=== PATIENT | female | born 1980 | race Caucasian/White ===

== ENCOUNTER 2024-07-28 09:27 | Outpatient (AMB) | payer BC, SELFPAY ==
--- NOTE | 2024-07-28 09:44 | MHC.PC.OV ---
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 She has been taking Lisinopril 20 mg daily for hypertension and reports that she has been stable on this medication with no side effects such as dizziness or cough. Her blood pressure readings remain well-controlled, with a recent measurement of 108/78 mmHg. The patient denies any recent emergency room visits or hospitalizations related to her condition and states that her health has been stable. She confirms adherence to the current treatment plan and expresses no current complaints affecting her overall well-being. Patient is celebrating Thanksgiving with her family at her mother's house. The patient's father at age 81 this past September. Patient was informed and verbally consented to the use of an ambient scribe for clinic note documentation during this visit. ROS: - Cardiovascular: Denies chest pain or palpitations. - Respiratory: Denies cough or shortness of breath. - Neurologic: Denies dizziness or syncopal episodes. - Extremities: Denies edema or unusual swelling. Physical exam: Constitutional: Alert, in no distress. Neck: Supple, Full range of motion. No lymphadenopathy. Respiratory: Clear to auscultation. Cardiovascular: S1 S2 regular. No murmurs. Extremities: Warm and well perfused. No clubbing, cyanosis or edema. Psychiatric: Normal mood and affect [facility] Medical History (Updated 03/07/24 @ 12:43 by LOUANN Hilario) Seasonal allergic rhinitis due to pollen History of hemolysis, elevated liver enzymes, and low platelet (HELLP) syndrome Essential hypertension Surgical History (Updated 07/28/24 @ 09:54 by Hanna Foster CMA) H/O section Family History (Updated 07/28/24 @ 09:56 by Hanna Foster CMA) Mother Breast cancer Kidney stone Father Heart disease HTN (hypertension) Social History Housing: House Alcohol intake: current Patient Tobacco Use Status: Never used Tobacco e-Cigarette/Vaping Use: Never Used service: No Current occupational status: employed 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 1. Little interest or pleasure in doing things: not at all 2. Feeling down, depressed, or hopeless: not at all 3. Trouble falling or staying asleep, or sleeping too much: not at all 4. Feeling tired or having little energy: not at all 5. Poor appetite or overeating: not at all 6. Feeling bad about yourself - or that you are a failure or have let yourself or your family down: not at all 7. Trouble concentrating on things, such as reading the newspaper or watching television: not at all 8. Moving or speaking so slowly that other people could have noticed. Or the opposite - being so fidgety or restless that you have been moving around a lot more than usual: not at all 9. Thoughts that you would be better off or of hurting yourself in some way: not at all Total score: 0 Depression Screening Interpretation: Negative Depression Screening Done: Yes 38079 - PHQ-9 Billing: Yes Source: Developed by Drs. Jose Maria Samuels, Ave [address], Jonel Street and colleagues, with an educational jerome from [employer]. Thrive Questionnaire Date Thrive assessed: 07/28/24 I am a: Patient What is your living situation today?: I have a steady place to live Within the past 12 months, did the food you bought not last and you didn't have the money to get more?: Never true Within the past 12 months, did you worry whether your food would run out before you got money to buy more?: Never true Do you have trouble paying for medicines?: No Do you have trouble getting transportation to medical appointments?: No Do you have trouble paying your heating and electricity bill?: No Do you have trouble taking care of your child, family member or friend?: No Do you have trouble with day-to-day activities such as bathing, preparing meals, shopping, managing finances, etc.?: No Are you currently unemployed and looking for a job?: No Are you interested in more education?: No Please select the resources that you would like help with: None Currently or been in a relationship where the following occur: No concerns reported THRIVE Score: 0 AUDIT C Alcohol Use Questionnaire (AUDIT-C) 1. How often do you have a drink containing alcohol?: Monthly or less 2. How many drinks containing alcohol do you have on a typical day when you are drinking?: 1 or 2 3. How often do you have six or more drinks on one occasion?: Never Total Score: 1 DOMONIQUE-7 AMB Questionnaire DOMONIQUE-7 Date DOMONIQUE - 7 assessed: 07/28/24 Feeling nervous, anxious, or on edge: 0 = Not at all Not being able to stop or control worryin = Not at all Worrying too much about different things: 0 = Not at all Trouble relaxin = Not at all Being so restless that it is hard to sit still: 0 = Not at all Becoming easily annoyed or irritable: 0 = Not at all Feeling afraid as if something awful might happen: 0 = Not at all Total DOMONIQUE-7 score (0-4 normal; 5-9 mild; 10-14 moderate; 15-21 severe): 0 Source: Developed by Drs. Jose Maria Samuels, [address], Jonel [address] and colleagues, with an educational jerome from [employer]. DOMONIQUE-7 Assessment Billing DOMONIQUE-7 Assessment Tool: DOMONIQUE-7 Assessment 62315 Physical exam (Primary Care) Vital Signs: Last Vital Signs Pulse 106 H 07/28/24 09:53 Resp 12 07/28/24 09:53 BP 108/78 07/28/24 09:53 Pulse Ox 100 07/28/24 09:53 Oxygen Delivery Method Room Air 07/28/24 09:53 BMI result Body Mass Index 24.0 Tobacco/Smoking Status: Tobacco use Status Tobacco use date assessed 07/28/24 07/28/24 09:54 Patient Tobacco Use Status Never used Tobacco 07/28/24 09:56 e-Cigarette/Vaping Use Never Used 07/28/24 09:56 PHQ-9: PHQ-9 Score PHQ-9: Total score 0 07/28/24 09:54 Depression Screening Interpretation: Negative Thrive Assessment: Date of Thrive Assessment Date Thrive assessed 07/28/24 07/28/24 09:54 Currently or been in a relationship where the following occur: No concerns reported Coding Level of Care Code Est Pt Level 3 (31219) Complex EM visit Add On G2211 Diagnoses Essential hypertension I10 Additional Codes DOMONIQUE-7 Assessment Billing - DOMONIQUE-7 Assessment Tool: DOMONIQUE-7 Assessment 93299 ([id number]) PHQ-9 - 45351 - PHQ-9 Billing: Yes ([id number]) Assessment & Plan Assessment & Plan (1) Essential hypertension: Code(s): I10 - Essential (primary) hypertension Category: Medical Plan Essential Hypertension: The patient's hypertension is well-controlled on Lisinopril 20 mg daily without adverse effects. I will continue the current treatment regimen and prescribe a year's supply to be filled at the specified pharmacy. The patient will undergo routine fasting laboratory tests prior to the next follow-up appointment scheduled in six months. The importance of continued adherence to medication and monitoring for any side effects was emphasized. Follow up in 6 months for a physical exam. Medications: New lisinopril 20 mg PO DAILY 90 tabs 3RF
[2024-07-28 09:53] VITALS: BP 108/78; PULSE 106; RESP 12; O2SAT 100; BMI 24.0
== END 2024-07-28 10:06 | disposition home or self-care (01) ==
PROVIDERS: PCP Physician Assistant Medical; Visit Provider Physician Assistant Medical
DX: I10 Essential (primary) hypertension (principal)

== ENCOUNTER → 2024-07-28 09:27 | Outpatient (BNVA) | payer BC, SELFPAY | PROVIDERS: PCP Physician Assistant Medical; Visit Provider Physician Assistant Medical | DX: I10 Essential (primary) hypertension (principal); Z79.899 Other long term (current) drug therapy | CPT/HCPCS: 96127 ==

== ENCOUNTER 2025-01-14 07:56 | Outpatient (REF) | payer BC, SELFPAY ==
[2025-01-14 11:05] LABS: Hematocrit 40.1 % (37.0-47.0); Hemoglobin 13.3 g/dl (12.0-16.0); Mean Corpuscular HGB Conc 33.2 g/dl (31.0-35.0); Mean Corpuscular Hemoglobin 31.1 pg (27.0-33.0); Mean Corpuscular Volume 93.7 fL (80.0-98.0); Mean Platelet Volume 9.3 fL (9.4-12.3); Platelet Count 413 X10*3/uL (160-400); Red Blood Count 4.28 X10*6/uL (4.20-5.50); Red Cell Distribution Width 12.5 % (11.0-16.0); White Blood Count 8.4 X10*3/uL (4.8-10.8)
[2025-01-14 11:21] LABS: Alanine Aminotransferase 18 U/L (0-31); Albumin Level 4.1 g/dL (3.5-5.0); Alkaline Phosphatase 49 U/L (39-117); Anion Gap 14 (12-20); Aspartate Amino Transferase 23 U/L (5-31); Bilirubin Total 0.6 mg/dL (0.0-1.0); Blood Urea Nitrogen 13 mg/dL (9-16); Carbon Dioxide 23 mmol/L (22-29); Chloride 105 mmol/L (96-108); Cholesterol 167 mg/dL (<200); Estimated Glomerular Filt Rate > 60; Glucose Random 99 mg/dL (60-115); HDL Cholesterol 52 mg/dL (>40); LDL Cholesterol Calculated 102 mg/dL (<100); Potassium 4.1 mmol/L (3.3-5.1); Sodium 138 mmol/L (135-145); Total Protein 7.3 g/dL (6.5-8.0); Triglycerides 69 mg/dL (<150)
== END 2025-01-14 07:57 | disposition home or self-care (01) ==
LOC: HO.WFDLDS 07:56
PROVIDERS: Visit Provider Physician Assistant Medical
DX: I10 Essential (primary) hypertension (principal); E78.5 Hyperlipidemia, unspecified; Z13.6 Encounter for screening for cardiovascular disorders
CPT/HCPCS: 36415; 80053; 80061; 85027

== ENCOUNTER 2025-02-05 08:25 | Outpatient (AMB) | payer BC, SELFPAY ==
--- NOTE | 2025-02-05 08:30 | A.OFFPC_ITS ---
Vital Signs 02/05/25 08:51 Height 5 ft 5 in Weight 147 lb 2 oz BMI 24.5 BP 116/82 Blood Pressure Location Rt brachial Position Sitting Pulse 90 Pulse Source Pulse Oximeter Temp 98.8 F Temp Source Temporal Artery Scan Pulse Oximetry (%) 98 Oxygen Delivery Method Room Air Intake Visit Reasons: Annual PE - see comments Intake Note: Jennifer presents in the office today for her annual physical. Allergies Seasonal Allergies Allergy (Verified 02/05/25 08:33) Congestion Tobacco use date assessed: 02/05/25 Dental Screening Dental Screen Date: 02/05/25 Did you have a dental visit in the last 12 months?: Yes Did you have a dental problem in the last 6 months where you did not have access to dental care?: No Was dental information given to patient?: Patient has dentist HPI HPI Comments History of Present Illness Details This is a 44-year-old female with a past medical history of seasonal allergies and hypertension presenting for a physical exam. Hypertension-taking lisinopril 20 mg daily. Her blood pressure is 116/68. Nonsmoker. Walks 3-4 days per week. She follows a healthy diet. She weight lifts. Seasonal allergies-taking Flonase Sensimist and Claritin. She has also been using a Neti pot, but she feels that she has a sinus infection that developed over the past few weeks. She initially had cold symptoms which resolved for the most part, and she has persistent sinus pressure particularly over the left maxillary area and frontal area. She has had some yellowish nasal discharge and copious postnasal drip. No fevers or chills. Negative Cologuard 01/09/2025. Mammogram 10/07/2024. Up-to-date with OBGYN, eye and dental exams. We reviewed her blood work which showed mildly elevated platelets at 413,000, but again she has been sick for the past few weeks. Receives annual influenza vaccine. Tdap 02/28/2022. ROS: Constitutional: No unexplained weight loss, fever, chills, fatigue or night sweats. Eyes: No vision changes, blurry vision, double vision, eye pain, eye redness, eye discharge. ENT: No hearing loss, no ear pain, see HPI Respiratory: No shortness of breath, cough or sputum production. Cardiovascular: No chest pain, chest pressure or chest discomfort. No palpitations or pedal edema. Gastrointestinal: No anorexia, nausea, vomiting or diarrhea. No abdominal pain or blood in stool. Genitourinary: No dysuria, hematuria, urinary frequency. Neurologic: No headache, dizziness, syncope, unilateral weakness, ataxia, numbness or tingling in the extremities. Musculoskeletal: No muscle pain, back pain, joint pain or swelling. Hematologic/Lymphatics: No bleeding or bruising. No painful lymph nodes. Skin: No rash changing or new moles or freckles. Endocrine: No cold or heat intolerance. No polyuria or polydipsia. Psychiatric: No depression or anxiety. No SI/HI. Physical exam: Constitutional: Alert, in no distress. Head: Normocephalic. Eyes: Pupils are equal, round and reactive to light. Extraocular muscles intact. Ear, Nose and Throat: Canals clear. TMs normal. Nasal mucosa mildly erythematous. Maxillary sinus tenderness left greater than right and frontal tenderness. No nasal discharge. No oral lesions. Neck: Supple, Full range of motion. No lymphadenopathy. No palpable thyroid masses. Respiratory: Clear to auscultation. Cardiovascular: S1 S2 regular. No murmurs. No carotid bruits. Gastrointestinal: Abdomen soft, non-tender, non-distended. Normal bowel sounds. No palpable masses. Neurologic: No focal neurological deficits. Symmetric patellar reflexes. Moves all extremities spontaneously. Sensation intact bilaterally. Skin: No rashes Musculoskeletal: No gross deformities. Normal range of motion. Extremities: Warm and well perfused. No clubbing, cyanosis or edema. Intact peripheral pulses bilaterally. Psychiatric: Normal mood and affect [facility] Medical History (Updated 02/05/25 @ 09:04 by LOUANN Hilario) Acute sinusitis Routine physical examination Elevated platelet count Seasonal allergic rhinitis due to pollen History of hemolysis, elevated liver enzymes, and low platelet (HELLP) syndrome Essential hypertension Surgical History (Updated 07/28/24 @ 09:54 by Hanna Foster CMA) H/O section Family History Mother Breast cancer Kidney stone Father Heart disease HTN (hypertension) Social History (Updated 02/05/25 @ 08:34 by Roslyn Sanchez MA) Housing: House Alcohol intake: current Patient Tobacco Use Status: Never used Tobacco e-Cigarette/Vaping Use: Never Used Second Hand Smoke Exposure: No service: No Current occupational status: employed 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 1. Little interest or pleasure in doing things: not at all 2. Feeling down, depressed, or hopeless: not at all 3. Trouble falling or staying asleep, or sleeping too much: not at all 4. Feeling tired or having little energy: not at all 5. Poor appetite or overeating: not at all 6. Feeling bad about yourself - or that you are a failure or have let yourself or your family down: not at all 7. Trouble concentrating on things, such as reading the newspaper or watching television: not at all 8. Moving or speaking so slowly that other people could have noticed. Or the opposite - being so fidgety or restless that you have been moving around a lot more than usual: not at all 9. Thoughts that you would be better off or of hurting yourself in some way: not at all Total score: 0 Depression Screening Interpretation: Negative Depression Screening Done: Yes 44852 - PHQ-9 Billing: Yes Source: Developed by Drs. Jose Maria Samuels, [address], Jon[address] and colleagues, with an educational jerome from [employer]. Thrive Questionnaire Date Thrive assessed: 02/05/25 I am a: Patient What is your living situation today?: I have a steady place to live Within the past 12 months, did the food you bought not last and you didn't have the money to get more?: Never true Within the past 12 months, did you worry whether your food would run out before you got money to buy more?: Never true Do you have trouble paying for medicines?: No Do you have trouble getting transportation to medical appointments?: No Do you have trouble paying your heating and electricity bill?: No Do you have trouble taking care of your child, family member or friend?: No Do you have trouble with day-to-day activities such as bathing, preparing meals, shopping, managing finances, etc.?: No Are you currently unemployed and looking for a job?: No Are you interested in more education?: No Please select the resources that you would like help with: None Currently or been in a relationship where the following occur: No concerns reported THRIVE Score: 0 AUDIT C Alcohol Use Questionnaire (AUDIT-C) 1. How often do you have a drink containing alcohol?: Monthly or less 2. How many drinks containing alcohol do you have on a typical day when you are drinking?: 1 or 2 3. How often do you have six or more drinks on one occasion?: Never Total Score: 1 Score Reviewed/Action Taken: No DOMONIQUE-7 AMB Questionnaire DOMONIQUE-7 Date DOMONIQUE - 7 assessed: 02/05/25 Feeling nervous, anxious, or on edge: 0 = Not at all Not being able to stop or control worryin = Not at all Worrying too much about different things: 0 = Not at all Trouble relaxin = Not at all Being so restless that it is hard to sit still: 0 = Not at all Becoming easily annoyed or irritable: 0 = Not at all Feeling afraid as if something awful might happen: 0 = Not at all Total DOMONIQUE-7 score (0-4 normal; 5-9 mild; 10-14 moderate; 15-21 severe): 0 Source: Developed by Drs. Jose Maria Samuels, [address], [address] and colleagues, with an educational jerome from [employer]. DOMONIQUE-7 Assessment Billing DOMONIQUE-7 Assessment Tool: DOMONIQUE-7 Assessment 82025 Physical exam (Primary Care) Tobacco/Smoking Status: Tobacco use Status Tobacco use date assessed 02/05/25 02/05/25 08:46 Patient Tobacco Use Status Never used Tobacco 02/05/25 08:34 e-Cigarette/Vaping Use Never Used 02/05/25 08:34 PHQ-9: PHQ-9 Score PHQ-9: Total score 0 02/05/25 08:46 Depression Screening Interpretation: Negative Thrive Assessment: Date of Thrive Assessment Date Thrive assessed 02/05/25 02/05/25 08:32 Currently or been in a relationship where the following occur: No concerns reported Coding Level of Care Code Est Pt Prev Care 40-64y(99491) Diagnoses Elevated platelet count R79.89 Essential hypertension I10 Acute non-recurrent maxillary sinusitis J01.00 Sinusitis location: maxillary Recurrence: non-recurrent Additional Codes DOMONIQUE-7 Assessment Billing - DOMONIQUE-7 Assessment Tool: DOMONIQUE-7 Assessment 57003 ([id number]) PHQ-9 - 90424 - PHQ-9 Billing: Yes ([id number]) Assessment & Plan Assessment & Plan (1) Elevated platelet count: Code(s): R79.89 - Other specified abnormal findings of blood chemistry Category: Medical (2) Essential hypertension: Code(s): I10 - Essential (primary) hypertension Category: Medical (3) Acute sinusitis: Code(s): J01.90 - Acute sinusitis, unspecified Category: Medical Qualifiers: Sinusitis location: maxillary Recurrence: non-recurrent Qualified Code(s): J01.00 - Acute maxillary sinusitis, unspecified Plan Patient is seen today for a routine physical. As part of this visit we reviewed the following issues, which are considered and essential part of preventative health in this age group: - Breast Cancer screening - Annual Lean Facilitator exam - Screening for colon cancer - Blood pressure screening - Cholesterol screening - Osteoporosis prevention including calcium/vitamin D intake, weight bearing exercise & smoking cessation - Nutritional and exercise counseling - Counseling of injury prevention including fire prevention, smoke alarms and seat belt usage - Screening for depression - Education about skin cancer - Recommendations about immunizations - Recommendation of an eye exam - Screening for substance abuse Continue Claritin and Flonase Sensimist for seasonal allergy symptoms. Treat sinusitis with Augmentin 1 pill twice daily times 10 days. Side effects and administration reviewed. Encouraged taking this with food and having yogurt and probiotics. Call if symptoms do not resolve. Hypertension is well-controlled. Continue current regimen. Follow up in 6 months for hypertension. Medications: New amoxicillin-pot clavulanate 875-125 mg 1 tab PO BID 20 tabs 0RF Refilled lisinopril 20 mg PO DAILY 90 tabs 3RF
[2025-02-05 08:51] VITALS: BP 116/82; PULSE 90; TEMP 37.1; O2SAT 98; BMI 24.5
== END 2025-02-05 09:03 | disposition home or self-care (01) ==
LOC: HO.HMCFM 08:26
PROVIDERS: PCP Physician Assistant Medical; Visit Provider Physician Assistant Medical
DX: Z00.00 Encounter for general adult medical examination without abnormal findings (principal); R79.89 Other specified abnormal findings of blood chemistry; I10 Essential (primary) hypertension; J01.00 Acute maxillary sinusitis, unspecified

== ENCOUNTER → 2025-02-05 08:25 | Outpatient (BNVA) | payer BC, SELFPAY | PROVIDERS: PCP Physician Assistant Medical; Visit Provider Physician Assistant Medical | DX: Z00.01 Encounter for general adult medical examination with abnormal findings (principal); Z13.31 Encounter for screening for depression; R79.89 Other specified abnormal findings of blood chemistry; I10 Essential (primary) hypertension; J01.00 Acute maxillary sinusitis, unspecified | CPT/HCPCS: 96127 ==

== ENCOUNTER 2025-08-13 10:26 | Outpatient (AMB) | payer BC, SELFPAY ==
--- NOTE | 2025-08-13 10:22 | MHC.PC.OV ---
Intake Visit Reasons: telehealth HTN review Intake Note: Jennifer presents for a telehealth visit for HTN. 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 Is last menstrual period known: Yes Last menstrual period: 08/11/25 Post menopausal: No Patient : No Allergies Seasonal Allergies Allergy (Verified 08/13/25 10:23) Congestion Tobacco use date assessed: 08/13/25 Dental Screening Dental Screen Date: 08/13/25 Did you have a dental visit in the last 12 months?: Yes Did you have a dental problem in the last 6 months where you did not have access to dental care?: No Was dental information given to patient?: Patient has dentist HPI HPI Comments History of Present Illness Details This is a 45-year-old female with a past medical history of seasonal allergies and hypertension presenting for follow up. Hypertension-taking lisinopril 20 mg daily. She provided the following readings from home: 06/17/ 109/78, 07/21 123/79 and 08/11 110/73. Nonsmoker. Walks 3-4 days per week. She follows a healthy diet. She weight lifts. Negative Cologuard 01/09/2025. Mammogram 10/07/2024. Up-to-date with OBGYN, eye and dental exams. We reviewed her blood work which showed mildly elevated platelets at 413,000, but she has been sick around that time. Received influenza vaccine. Tdap 02/28/2022. ROS: Constitutional: No fevers or chills Cardiovascular: No chest pain Neurologic: No dizziness PFSH Medical History (Updated 08/13/25 @ 10:57 by LOUANN Hilario) Screening for cardiovascular condition Acute sinusitis Routine physical examination Elevated platelet count Seasonal allergic rhinitis due to pollen History of hemolysis, elevated liver enzymes, and low platelet (HELLP) syndrome Essential hypertension Surgical History (Updated 07/28/24 @ 09:54 by Hanna Foster CMA) H/O section Family History Mother Breast cancer Kidney stone Father Heart disease HTN (hypertension) Social History (Updated 08/13/25 @ 10:24 by Roslyn Sanchez CMA) Housing: House Alcohol intake: current Patient Tobacco Use Status: Never used Tobacco e-Cigarette/Vaping Use: Never Used Second Hand Smoke Exposure: No Use of substances other than those prescribed or required for medical reasons: No Patient : No service: No Current occupational status: employed 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 Current occupational exposures/hazards: No Cognitive needs: No Hearing needs: No Vision needs: No Female Reproductive History Menstrual Date of last menstrual period: 08/11/25 Questionnaire Thrive Questionnaire Date Thrive assessed: 02/02/25 I am a: Patient What is your living situation today?: I have a steady place to live Within the past 12 months, did the food you bought not last and you didn't have the money to get more?: Never true Within the past 12 months, did you worry whether your food would run out before you got money to buy more?: Never true Do you have trouble paying for medicines?: No Do you have trouble getting transportation to medical appointments?: No Do you have trouble paying your heating and electricity bill?: No Do you have trouble taking care of your child, family member or friend?: No Do you have trouble with day-to-day activities such as bathing, preparing meals, shopping, managing finances, etc.?: No Are you currently unemployed and looking for a job?: No Are you interested in more education?: No Please select the resources that you would like help with: None Currently or been in a relationship where the following occur: No concerns reported THRIVE Score: 0 DOMONIQUE-7 AMB Questionnaire DOMONIQUE-7 Date DOMONIQUE - 7 assessed: 02/05/25 Source: Developed by Drs. Jose Maria Samuels, [address], [address] and colleagues, with an educational jerome from [employer]. Physical exam (Primary Care) Tobacco/Smoking Status: Tobacco use Status Tobacco use date assessed 08/13/25 08/13/25 10:25 Patient Tobacco Use Status Never used Tobacco 08/13/25 10:25 e-Cigarette/Vaping Use Never Used 08/13/25 10:25 Thrive Assessment: Date of Thrive Assessment Date Thrive assessed 02/02/25 08/13/25 10:25 Currently or been in a relationship where the following occur: No concerns reported Telehealth Telehealth Telehealth Platform: Telephone Location of provider rendering services: practice address Location of patient: address on file Patient Identification confirmed using: Name, : Yes Telehealth method: voice only Patient verbally consented to treatment: Yes Patient verbally consented to billing insurance company: Yes Patient informed of any privacy concerns related to visit: Yes Minutes spent on Phone/Video with Pt.: 6 Coding Level of Care Code Tele Est Pt Level 3 (53866) Diagnoses Essential hypertension I10 Elevated platelet count R79.89 Assessment & Plan Assessment & Plan (1) Essential hypertension: Code(s): I10 - Essential (primary) hypertension Category: Medical Plan: Continue lisinopril 20 mg daily. Recommended low-salt diet and continuing to exercise regularly. (2) Elevated platelet count: Code(s): R79.89 - Other specified abnormal findings of blood chemistry Category: Medical Plan: May have been reactive due to illness. Patient is reminded to have the CBC rechecked. Plan She will follow up for her physical exam in February 2026. Orders: Orders Lipid Panel 5 Months E78.5 - Hyperlipidemia, unspecified, I10 - Essential (primary) hypertension, Z13.6 - Encounter for screening for cardiovascular disorders TSH reflex Free T4 5 Months I10 - Essential (primary) hypertension, Z13.6 - Encounter for screening for cardiovascular disorders Comprehensive Met. Panel 5 Months I10 - Essential (primary) hypertension, Z13.6 - Encounter for screening for cardiovascular disorders
== END 2025-08-13 13:03 | disposition home or self-care (01) ==
LOC: HO.HMCFM 10:26
PROVIDERS: PCP Physician Assistant Medical; Visit Provider Physician Assistant Medical
DX: I10 Essential (primary) hypertension (principal); D75.839 Thrombocytosis, unspecified